=== PATIENT | female | born 1990 | race Caucasian/White ===

== ENCOUNTER → 2021-03-16 | Day surgery (SDC) | payer BC ==
[2021-03-15 12:57] LABS: BASOPHILS % 0.4 % (0.0-1.0); EOSINOPHILS # (AUTO) 0.2 (0.0-0.4); EOSINOPHILS % 2.5 % (0.0-6.0); HEMATOCRIT 38.4 % (34.2-44.1); HEMOGLOBIN 12.5 g/dL (12.0-16.0); LYMPHOCYTES # (AUTO) 1.9 (1.0-3.2); LYMPHOCYTES % 22.5 % (18.0-39.1); MEAN CORPUSCULAR HEMOGLOBIN 28.6 pg (28-32); MEAN CORPUSCULAR HGB CONC 32.6 g/dL (31-35); MEAN CORPUSCULAR VOLUME 87.9 fL (81-99); MONOCYTES # (AUTO) 0.5 (0.2-0.8); MONOCYTES % 5.7 % (4.4-11.3); NEUTROPHILS # (AUTO) 5.9 (2.1-6.9); NEUTROPHILS % 68.5 % (38.7-80.0); PLATELET COUNT 268 x10e3/uL (140-360); RED BLOOD COUNT 4.37 x10e6/uL (3.6-5.1); RED CELL DISTRIBUTION WIDTH 13.4 % (11.7-14.4)
[~2021-03-16] MED LIST: BUPIVACAINE 0.25% 30ML SDV ONE; HYDROCODONE/APAP 5MG-325MG TAB ONE; HYDROMORPHONE 1MG/1ML INJ ONE; MEPERIDINE HCL INJ 25 MG/ML VIAL ONE; ORTHO TRI-CYCL1 EACH PO; ULTRAM 50MG50 MG PO
[2021-03-16 10:55] VITALS: BP 100/64
== END | disposition home or self-care (01) ==
LOC: OR 05:18
PROVIDERS: ATTEND Obstetrics & Gynecology
DX: N83.11 Corpus luteum cyst of right ovary (principal); R01.1 Cardiac murmur, unspecified; F17.290 Nicotine dependence, other tobacco product, uncomplicated; Z88.6 Allergy status to analgesic agent; Z01.812 Encounter for preprocedural laboratory examination; Z20.822 Contact with and (suspected) exposure to COVID-19
CPT/HCPCS: 36415; 58662; 84702; 85025; 88305; J1170; J2175; U0002; 88304